=== PATIENT | female | born 1985 | race Caucasian/White ===

== ENCOUNTER 2017-07-29 08:25 | Outpatient (CLI) | payer OTHER ==
[2017-07-29 13:27] LABS: BASOPHILS % (AUTO) 0.7 %; EOSINOPHILS # (AUTO) 0.2 10^3/uL (0.0-0.7); EOSINOPHILS % (AUTO) 5.6 %; HGB - HEMOGLOBIN 13.6 g/dL (12.0-16.0); LYMPHOCYTES # (AUTO) 1.2 10^3/uL (1.5-3.5); LYMPHOCYTES % (AUTO) 28.5 %; MEAN CORPUSCULAR HGB CONC 34.5 g/dL (32.0-36.0); MEAN CORPUSCULAR VOLUME 86.9 fL (81.0-99.0); MEAN PLATELET VOLUME 8.6 fL (7.9-10.8); MONOCYTES # (AUTO) 0.4 10^3/uL (0.0-1.0); MONOCYTES % (AUTO) 9.2 %; NEUTROPHILS # (AUTO) 2.3 10^3/uL (1.5-6.6); PLT - PLATELET COUNT 209 10^3/uL (130-450); RED BLOOD COUNT 4.55 10^6/uL (4.20-5.40); RED CELL DISTRIBUTION WIDTH 13.2 % (12.0-15.0); THYROID STIMULATING HORMONE < 0.08 uIU/mL (0.34-5.60); WHITE BLOOD COUNT 4.2 x10^3/uL (4.8-10.8)
[2017-07-29 13:32] LABS: % IRON SATURATION 39 % (20-50); ALBUMIN 4.2 g/dL (3.2-5.5); ALBUMIN/GLOBULIN RATIO 1.4 (1.0-2.2); ALKALINE PHOSPHATASE 48 IU/L (42-121); ALT ALANINE AMINOTRANSFERASE 57 IU/L (10-60); AST ASPARTATE AMINOTRANSFERASE 146 IU/L (10-42); BILIRUBIN,TOTAL 0.9 mg/dL (0.2-1.0); BUN - BLOOD UREA NITROGEN 11 mg/dL (6-20); CALCIUM 8.9 mg/dL (8.5-10.3); CARBON DIOXIDE - CO2 23 mmol/L (21-32); CHLORIDE 108 mmol/L (101-111); CHOL/HDL RATIO 3.5 (<4.4); CHOLESTEROL 169 mg/dL; CREATININE 0.6 mg/dL (0.4-1.0); GFR - MDRD 117 (>89); GLUCOSE 88 mg/dL (70-100); HDL CHOLESTEROL 48 mg/dL; IRON 141 ug/dL (28-170); LDL CHOLESTEROL,CALCULATED 111 mg/dL; LDL/HDL RATIO 2.3 (<4.4); SODIUM 137 mmol/L (135-145); TOTAL IRON BINDING CAPACITY 363 ug/dL (250-450); TOTAL PROTEIN 7.2 g/dL (6.7-8.2); TRANSFERRIN 259 mg/dL (192-382); VLDL CHOLESTEROL 10 mg/dL
[2017-07-29 13:35] LABS: FERRITIN 28.1 ng/mL (11.0-306.8)
[2017-07-29 15:13] LABS: FREE T4 (FREE THYROXINE) 1.17 ng/dL (0.58-1.64)
== END 2017-07-29 08:26 | disposition home or self-care (01) ==
LOC: LAB.N 08:25
PROVIDERS: ATTEND Nurse Practitioner Gerontology
DX: Z13.9 Encounter for screening, unspecified (principal)
CPT/HCPCS: 36415; 80053; 80061; 82607; 82728; 82746; 83540; 83721; 84439; 84443; 84466; 85025

== ENCOUNTER 2017-08-02 08:00 | Outpatient (CLI) | payer OTHER ==
[2017-08-02 13:08] LABS: CRP - C-REACTIVE PROTEIN < 1.0 mg/dL (0-1.0)
[2017-08-02 13:13] LABS: THYROID STIMULATING HORMONE < 0.08 uIU/mL (0.34-5.60)
[2017-08-02 13:44] LABS: RHEUMATOID FACTOR NEGATIVE (Negative)
[2017-08-02 14:30] LABS: FREE T4 (FREE THYROXINE) 0.94 ng/dL (0.58-1.64)
[2017-08-04 13:47] LABS: ANA SCREEN NEGATIVE (NEGATIVE)
== END 2017-08-02 23:59 ==
LOC: LAB.WCP 08:00
PROVIDERS: ATTEND Nurse Practitioner Gerontology
DX: E05.90 Thyrotoxicosis, unspecified without thyrotoxic crisis or storm (principal); M25.50 Pain in unspecified joint
CPT/HCPCS: 36415; 84439; 84443; 85651; 86038; 86140; 86430

== ENCOUNTER 2017-08-16 13:34 | Outpatient (CLI) | payer OTHER ==
[2017-08-16 19:39] LABS: ALBUMIN 4.5 g/dL (3.2-5.5); ALKALINE PHOSPHATASE 49 IU/L (42-121); ALT ALANINE AMINOTRANSFERASE 15 IU/L (10-60); AST ASPARTATE AMINOTRANSFERASE 22 IU/L (10-42); BILIRUBIN,TOTAL 0.5 mg/dL (0.2-1.0); TOTAL PROTEIN 7.6 g/dL (6.7-8.2)
[2017-08-16 19:45] LABS: BILIRUBIN,DIRECT < 0.1 mg/dL (0.1-0.5)
== END 2017-08-16 13:35 ==
LOC: LAB.N 13:34
PROVIDERS: ATTEND Nurse Practitioner Gerontology
DX: R74.8 Abnormal levels of other serum enzymes (principal)
CPT/HCPCS: 36415; 80076

== ENCOUNTER 2018-12-04 08:00 | Outpatient (CLI) | payer OTHER ==
[2018-12-04 13:02] LABS: BASOPHILS % (AUTO) 0.8 %; EOSINOPHILS # (AUTO) 0.1 10^3/uL (0.0-0.7); EOSINOPHILS % (AUTO) 2.6 %; HGB - HEMOGLOBIN 13.5 g/dL (12.0-16.0); LYMPHOCYTES # (AUTO) 1.3 10^3/uL (1.5-3.5); LYMPHOCYTES % (AUTO) 24.8 %; MEAN PLATELET VOLUME 10.4 fL (7.9-10.8); MONOCYTES # (AUTO) 0.3 10^3/uL (0.0-1.0); NEUTROPHILS # (AUTO) 3.5 10^3/uL (1.5-6.6); NEUTROPHILS % (AUTO) 65.6 %; PLT - PLATELET COUNT 208 10^3/uL (130-450); RED BLOOD COUNT 4.65 10^6/uL (4.20-5.40); RED CELL DISTRIBUTION WIDTH 13.2 % (12.0-15.0); WHITE BLOOD COUNT 5.3 x10^3/uL (4.8-10.8)
[2018-12-04 13:13] LABS: ALBUMIN 4.1 g/dL (3.2-5.5); ALBUMIN/GLOBULIN RATIO 1.2 (1.0-2.2); BILIRUBIN,TOTAL 0.7 mg/dL (0.2-1.0); CREATININE 0.6 mg/dL (0.4-1.0); TOTAL PROTEIN 7.4 g/dL (6.7-8.2)
== END 2018-12-04 23:59 | disposition home or self-care (01) ==
LOC: LAB.N 08:00
PROVIDERS: ATTEND Nurse Practitioner Gerontology
DX: Z13.9 Encounter for screening, unspecified (principal)
CPT/HCPCS: 36415; 80053; 85025

== ENCOUNTER 2019-03-21 09:20 | Outpatient (CLI) | payer OTHER ==
[2019-03-21 17:39] LABS: CANDIDA GROUP DNA POSITIVE (NEGATIVE); CANDIDA KRUSEI DNA NEGATIVE (NEGATIVE); TRICHOMONAS VAGINALIS DNA NEGATIVE (NEGATIVE)
[2019-03-21 20:01] LABS: TRICHOMONAS VAGINALIS DNA NEGATIVE (NEGATIVE)
== END 2019-03-21 23:59 | disposition home or self-care (01) ==
LOC: LAB.R 09:20
PROVIDERS: ATTEND Family Medicine
DX: N76.0 Acute vaginitis (principal)
CPT/HCPCS: 87491; 87591; 87661; 87801